=== PATIENT | male | born 1980 | race Caucasian/White ===

== ENCOUNTER 2016-08-31 12:42 | Emergency (ER) | payer BC ==
[~2016-08-31] VITALS: Wt 85.0 kg
[~2016-08-31 12:42] MED LIST: ACID1TAB14 PO; AMO500 PO; APIX5TAB PO; FERGON PO; GENT15CR TOP; HYDR-906 PO; LEVO750T25 PO; LYR75 PO
[2016-08-31] MEDS ORDERED: ONDANSETRON (ODT) 4 MG TAB ODT STA (13:37)
[2016-08-31] MEDS ORDERED: HYDROmorphONE 2 MG/ML SYG IM STA (13:59)
[2016-08-31] MEDS ORDERED: CEPHALEXIN 500 MG CAP PO ONE (14:00)
[2016-08-31] MEDS ORDERED: HYDROCODONE/APAP (10/325) TAB PO ONE (14:00)
[2016-08-31] MEDS ORDERED: TRIMETHOPRIM/SULFAMETHOX (DS) TAB PO ONE (14:00)
[2016-08-31] MEDS ORDERED: SSD1C20 TOP (14:14)
[2016-08-31] MEDS ORDERED: HYDR-902 PO (14:14)
[2016-08-31] MEDS ORDERED: IBUP-1542 PO (14:22)
[2016-08-31] MEDS ORDERED: SILVER SULFADIAZINE 1% 25 GM CR TOP ONE (15:00)
--- NOTE | 2016-08-31 16:03 | ERD ---
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 He has had leg ulcers for the past few years and was admitted in April for leg ulcer with infection. It was worse the last time he said as it was green. He said the pain is come back however over the past 2 weeks. He has no fevers. He has not called his primary doctor as of yet. The pain is 8 out of 10. Upon review of old medical records this is the patient's third visit to the ER since 2015 and April. He does have a primary doctor. ROS All systems reviewed and are negative except as per history of present illness. Medications Home Meds Active Scripts Silver Sulfadiazine (THERMAZENE 1% 25 GM) 1 Applic Cr, 1 APPLIC TOP DAILY, #1 TUB Prov:ASHLEY CLAYTON MD 08/31/16 Hydrocodone/Acetaminophen (Saline 10-325 Tablet) 1 Each Tablet, 1 TAB PO Q6H Y for PAIN, #7 TAB Prov:ASHLEY CLAYTON MD 08/31/16 Reported Medications Ibuprofen* (Ibuprofen*) 600 Mg Tablet, 600 MG PO Q6 Y for PAIN, TAB 08/31/16 Discontinued Scripts Hydrocodone/Acetaminophen (Saline 5-325 Tablet) 1 Each Tablet, 1 EACH PO Q4H Y for PAIN, #20 TAB Prov:MADHAV VELEZ 05/14/16 Amoxicillin* (Amoxicillin*) 500 Mg Cap, 500 MG PO BID, #20 CAP Prov:MADHAV VELEZ 05/14/16 Pregabalin* (Lyrica*) 75 Mg Capsule, 75 MG PO BID for 30 Days, CAP Prov:MADHAV VELEZ 05/14/16 Levofloxacin* (Levaquin*) 750 Mg Tablet, 750 MG PO DAILY@06 for 10 Days, TAB Prov:MADHAV VELEZ 05/14/16 Lactobacillus Acidoph/Bulgaricus* (Floranex*) 1 Each Tablet, 1 TAB PO TID for 30 Days, TAB Prov:MADHAV VELEZ 05/14/16 Gentamicin Sulfate* (Gentamicin Sulfate* Cream) 0.1% - 15 Gm Cr, 1 APPLIC TOP TID, #16 OZ Prov:MADHAV VELEZ 05/14/16 Ferrous Gluconate* (Fergon*) 325 Mg Tab, 325 MG PO BID for 30 Days, TAB Prov:MADHAV VELEZ 05/14/16 Apixaban* (Eliquis*) 5 Mg Tablet, 2.5 MG PO BID for 30 Days, TAB 1 Refill Prov:MADHAV VELEZ 05/14/16 Allergies Allergies: Coded Allergies: No Known Allergy (Unverified , 04/30/16) PMhx/Soc History of Surgery: Yes (BILAT LE DVT/CELLULITIS/ULCERS/SKIN GRAFT) Anesthesia Reaction: No Hx Neurological Disorder: No Hx Respiratory Disorders: No Hx Cardiac Disorders: No Hx Psychiatric Problems: No Hx Miscellaneous Medical Probl: Yes (BILAT LE DVT/CELLULITIS/ULCERS/SKIN GRAFT) Hx Alcohol Use: No (denies) Hx Substance Use: No Hx Tobacco Use: No (denies) Smoking Status: Never smoker FmHx Family History: No diabetes Physical Exam Vitals Vital Signs Date Time Temp Pulse Resp B/P Pulse Ox O2 Delivery O2 Flow Rate FiO2 08/31/16 12:54 99.0 115 18 159/120 99 Physical Exam Const: Moderate distress secondary to pain Head: Atraumatic Eyes: Normal Conjunctiva ENT: Normal External Ears, Nose and Mouth. Neck: Full range of motion..~ No meningismus. Resp: Clear to auscultation bilaterally Cardio: Regular rate and rhythm, no murmurs Abd: Soft, non tender, non distended. Normal bowel sounds Skin: Acute on chronic ulcers to the bilateral lower extremities without obvious redness, streaking, or abscess formation Back: No midline or flank tenderness Ext: No cyanosis, or edema Neur: Awake and alert Psych: Normal Mood and Affect Results 24 hrs Current Medications Medications (Trade) Dose Ordered Sig/Michi Route PRN Reason Start Time Stop Time Status Last Admin Dose Admin Acetaminophen/ Hydrocodone Bitart (Saline ()) 1 tab ONCE ONCE PO 08/31/16 14:00 08/31/16 14:01 DC 08/31/16 14:53 Ondansetron HCl (Zofran Odt) 4 mg ONCE STAT ODT 08/31/16 13:37 08/31/16 13:38 DC 08/31/16 14:13 Trimethoprim/ Sulfamethoxazole (Bactrim (Ds)) 1 tab ONCE ONCE PO 08/31/16 14:00 08/31/16 14:01 DC 08/31/16 14:13 Cephalexin (Keflex) 500 mg ONCE ONCE PO 08/31/16 14:00 08/31/16 14:01 DC 08/31/16 14:13 Hydromorphone HCl (Dilaudid) 2 mg ONCE STAT IM 08/31/16 13:59 08/31/16 14:00 DC 08/31/16 14:09 Silver Sulfadiazine (Thermazene 1% 25 Gm) 1 applic ONCE ONCE TOP 08/31/16 15:00 08/31/16 15:01 DC 08/31/16 15:32 Procedures/MDM Patient is a 36-year-old male with chronic ulcers who presents with bilateral lower extremity pain. He has open wounds which appear to be acute on chronic ulcers but at this point there is no obvious sign of infection. I did have the wound specialists come to the bedside to evaluate the patient and they said they are familiar with his legs from a previous admission in April and that it looks much better now than he did when he was admitted. They do not think there is infection and recommended Silvadene cream and daily dressings. The patient does have a daily wound care nurse who comes to his house to change dressings. I recommended follow-up with the amputation prevention center for further treatment. I do not think the patient requires admission to the hospital at this time. The patient can return for any worsening symptoms. Departure Diagnosis: Primary Impression: Ulcers of both lower extremities Additional Impression: Bilateral leg pain Condition: Fair Patient Instructions: Chronic Venous Insufficiency: Treating Ulcers, Skin Ulcer , Simple Referrals: [facility] Additional Instructions: SPECIALIST: YOU HAVE A MEDICAL CONDITION WHICH REQUIRES YOU TO SEE A SPECIALIST WITHIN THE NEXT 1-2 DAYS. PLEASE FOLLOW UP WITH YOUR PRIMARY PHYSICIAN FOR REFFERAL.IF YOU DO NOT HAVE A PRIMARY CARE PHYSICIAN AND/OR YOU CAN NOT AFFORD TO SEE A PHYSICIAN THE FOLLOWING RESOURCES HAVE BEEN SUPPLIED TO YOU. IT IS YOUR RESPONSIBILITY TO BE SEEN BY THE SPECIALIST ASHLEY CLAYTON MD Aug 31, 2016 16:03
== END 2016-08-31 15:52 | disposition home or self-care (01) ==
LOC: E/R 12:42
DX: L97.919 Non-pressure chronic ulcer of unspecified part of right lower leg with unspecified severity (principal); L97.929 Non-pressure chronic ulcer of unspecified part of left lower leg with unspecified severity; M79.605 Pain in left leg; M79.604 Pain in right leg; Z79.01 Long term (current) use of anticoagulants
CPT/HCPCS: 96372; 99284; J1170; Z7610

== ENCOUNTER 2016-11-12 10:15 | Emergency (ER) | payer BC ==
[~2016-11-12] VITALS: Ht 177.8 cm; Wt 102.3 kg
[~2016-11-12 10:15] MED LIST changes: -ACID1TAB14 PO; -AMO500 PO; -APIX5TAB PO; -FERGON PO; -GENT15CR TOP; +HYDR-902 PO; -HYDR-906 PO; +IBUP-1542 PO; -LEVO750T25 PO; -LYR75 PO; +SSD1C20 TOP
[2016-11-12 10:26] VITALS: Ht 177.8 cm; Wt 102.3 kg
[2016-11-12] MEDS ORDERED: ONDANSETRON 4 MG INJ IV STA (11:01)
[2016-11-12] MEDS ORDERED: HYDROmorphONE 2 MG/ML SYG IV STA (11:01)
[2016-11-12] MEDS ORDERED: PIPER-TAZO 3.375 GM IV (PMX) 100 ML IVPB STA (11:01)
[2016-11-12] MEDS ORDERED: SODIUM CHLORIDE 0.9% 1L BAG IV* STA (11:01)
[2016-11-12] MEDS ORDERED: VANCOMYCIN 1 GM (PMX) 250 ML IVPB ONE (11:30)
[2016-11-12 11:51] LABS: ADD SCAN DIFF NO
[2016-11-12 11:57] LABS: BASOPHIL # 0.1 10^3/ul (0.0-0.1); BASOPHILS % 0.8 % (0.0-2.0); EOSINOPHILS # 0.1 10^3/ul (0.0-0.5); EOSINOPHILS % 2.2 % (0.0-7.0); HEMOGLOBIN 11.1 g/dl (14.0-18.0); LYMPHOCYTES # 1.2 10^3/ul (0.8-2.9); LYMPHOCYTES % 18.8 % (15.0-51.0); MEAN CORPUSCULAR HEMOGLOBIN 26.3 pg (29.0-33.0); MEAN CORPUSCULAR HGB CONC 32.6 g/dl (32.0-37.0); MEAN CORPUSCULAR VOLUME 80.6 fl (82.0-101.0); MEAN PLATELET VOLUME 10.3 fl (7.4-10.4); MONOCYTE # 0.4 10^3/ul (0.3-0.9); MONOCYTES % 6.3 % (0.0-11.0); NEUTROPHIL # 4.6 10^3/ul (1.6-7.5); NEUTROPHILS % 71.4 % (39.0-77.0); PLATELET COUNT 109 10^3/UL (140-415); RED BLOOD COUNT 4.22 10^6/ul (4.70-6.10); RED CELL DISTRIBUTION WIDTH 15.5 % (11.5-14.5); WHITE BLOOD COUNT 6.4 10^3/ul (4.8-10.8)
[2016-11-12 12:13] LABS: CHLORIDE 101 mmol/L (97-110)
[2016-11-12 12:14] LABS: ALBUMIN 4.1 g/dl (3.3-4.9); POTASSIUM 4.3 mmol/L (3.5-5.1); SODIUM 138 mmol/L (135-144)
[2016-11-12 12:17] LABS: ALANINE AMINOTRANSFERASE 44 IU/L (13-69); ALKALINE PHOSPHATASE 101 IU/L (42-121); ANION GAP 16 (8-16); ASPARTATE AMINO TRANSFERASE 28 IU/L (15-46); BILIRUBIN,INDIRECT 0.2 mg/dl (0-1.1); BILIRUBIN,TOTAL 0.2 mg/dl (0.2-1.3); BLOOD UREA NITROGEN 16 mg/dl (7-20); CALCIUM 9.5 mg/dl (8.4-10.2); CARBON DIOXIDE 25 mmol/L (21-31); CREATININE 0.95 mg/dl (0.61-1.24); GLUCOSE 123 mg/dl (70-220); INR 1.01; PROTIME 13.3 Sec (12.2-14.2); TOTAL PROTEIN 7.8 g/dl (6.1-8.1)
--- NOTE | 2016-11-12 12:22 | RADRPT ---
PROCEDURE: XR Chest. CLINICAL INDICATION: Possible Sepsis TECHNIQUE: Single frontal view of the chest was obtained. COMPARISON: None. FINDINGS: There is mild cardiomegaly. The lungs are clear. There is no significant pleural effusion or pneumothorax. IMPRESSION: Mild cardiomegaly. No focal infiltrates or effusions. RPTAT: EE Physician Ramírez Date Time Electronically viewed and signed by Guicho Badillo Physician on 11/12/2016 12:22 RA/
--- NOTE | 2016-11-12 12:25 | RADRPT ---
PROCEDURE: XR Foot. CLINICAL INDICATION: Possible Sepsis TECHNIQUE: AP, lateral and oblique views of the right foot was obtained. The images were reviewed on a PACS workstation. COMPARISON: None. FINDINGS: There is no evidence of acute fracture, dislocation, or subluxation. The joint spaces are preserved. There is marked swelling of the first digit of the right foot with mildly decreased mineralization o f the first distal phalanx without definite cortical irregularity. Bone mineralization is otherwise normal. IMPRESSION: Soft tissue swelling of the first digit as well as mildly decreased osseous mineralization of the di stal phalanx without definite cortical irregularity. Findings are nonspecific and suggest celluliti s although underlying osteomyelitis cannot be entirely excluded. Clinical correlation is recommende d. RPTAT: EE Physician Ramírez Date Time Electronically viewed and signed by Physician Ramírez on 11/12/2016 12:25 RA/
[2016-11-12 12:29] LABS: TROPONIN-I < 0.012 ng/ml (0.00-0.12)
[2016-11-12] MEDS ORDERED: HYDROmorphONE 1 MG/ML SYG IV STA ×4 (13:22→19:27)
--- NOTE | 2016-11-12 14:33 | ERA ---
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 The patient says that his nailbed of the right toe is black. The patient said that 2-3 weeks ago it started and it has been painful and smelly. He has had a history of infections of the legs as well. He has been seen by provisioning specialist, vascular surgeons, and podiatry. He has had no recent antibiotics. He is in significant pain. ROS All systems reviewed and are negative except as per history of present illness. Medications Home Meds Active Scripts Silver Sulfadiazine (THERMAZENE 1% 25 GM) 1 Applic Cr, 1 APPLIC TOP DAILY, #1 TUB Prov:ASHLEY CLAYTON MD 08/31/16 Hydrocodone/Acetaminophen (Edwards 10-325 Tablet) 1 Each Tablet, 1 TAB PO Q6H Y for PAIN, #7 TAB Prov:ASHLEY CLAYTON MD 08/31/16 Reported Medications Ibuprofen* (Ibuprofen*) 600 Mg Tablet, 600 MG PO Q6 Y for PAIN, TAB 08/31/16 Allergies Allergies: Coded Allergies: morphine (Verified Allergy, Unknown, VOMITING, 11/12/16) tramadol (Verified Allergy, Unknown, 11/12/16) PMhx/Soc History of Surgery: Yes (BILAT LE DVT/CELLULITIS/ULCERS/SKIN GRAFT) Anesthesia Reaction: No Hx Neurological Disorder: No Hx Respiratory Disorders: No Hx Cardiac Disorders: No Hx Psychiatric Problems: No Hx Miscellaneous Medical Probl: Yes (BILAT LE DVT/CELLULITIS/ULCERS/SKIN GRAFT) Hx Alcohol Use: No (denies) Hx Substance Use: No Hx Tobacco Use: No (denies) Smoking Status: Never smoker FmHx Family History: No diabetes Physical Exam Vitals Vital Signs Date Time Temp Pulse Resp B/P Pulse Ox O2 Delivery O2 Flow Rate FiO2 11/12/16 10:26 99.7 105 19 119/94 97 Physical Exam Const: Moderate distress secondary to pain Head: Atraumatic Eyes: Normal Conjunctiva ENT: Normal External Ears, Nose and Mouth. Neck: Full range of motion..~ No meningismus. Resp: Clear to auscultation bilaterally Cardio: Regular rate and rhythm, no murmurs Abd: Soft, non tender, non distended. Normal bowel sounds Skin: Chronic wound changes to lower extremity with gangrene of the second right digit with wound discharge and foul smell Back: No midline or flank tenderness Ext: No cyanosis, or edema Neur: Awake and alert Psych: Normal Mood and Affect Result Diagram: 11/12/16 1140 11/12/16 1140 Results 24 hrs Laboratory Tests Test 11/12/16 11:40 11/12/16 13:00 White Blood Count 6.410^3/ul Red Blood Count 4.2210^6/ul Hemoglobin 11.1g/dl Hematocrit 34.0% Mean Corpuscular Volume 80.6fl Mean Corpuscular Hemoglobin 26.3pg Mean Corpuscular Hemoglobin Concent 32.6g/dl Red Cell Distribution Width 15.5% Platelet Count 24356^3/UL Mean Platelet Volume 10.3fl Neutrophils % 71.4% Lymphocytes % 18.8% Monocytes % 6.3% Eosinophils % 2.2% Basophils % 0.8% Nucleated Red Blood Cells % 0.0/100WBC Neutrophils # 4.610^3/ul Lymphocytes # 1.210^3/ul Monocytes # 0.410^3/ul Eosinophils # 0.110^3/ul Basophils # 0.110^3/ul Nucleated Red Blood Cells # 0.010^3/ul Prothrombin Time 13.3Sec Prothrombin Time Ratio 1.0 INR International Normalized Ratio 1.01 Activated Partial Thromboplast Time 65.0Sec Sodium Level 138mmol/L Potassium Level 4.3mmol/L Chloride Level 101mmol/L Carbon Dioxide Level 25mmol/L Anion Gap 16 Blood Urea Nitrogen 16mg/dl Creatinine 0.95mg/dl Glucose Level 123mg/dl Lactic Acid Level 1.2mmol/L 1.4mmol/L Calcium Level 9.5mg/dl Total Bilirubin 0.2mg/dl Direct Bilirubin 0.00mg/dl Indirect Bilirubin 0.2mg/dl Aspartate Amino Transf (AST/SGOT) 28IU/L Alanine Aminotransferase (ALT/SGPT) 44IU/L Alkaline Phosphatase 101IU/L Troponin I < 0.012ng/ml Total Protein 7.8g/dl Albumin 4.1g/dl Globulin 3.70g/dl Albumin/Globulin Ratio 1.10 Current Medications Medications (Trade) Dose Ordered Sig/Michi Route PRN Reason Start Time Stop Time Status Last Admin Dose Admin Sodium Chloride 3170 ml 3,170 ml BOLUS OVER 2 HOURS STAT IV* 11/12/16 11:01 11/12/16 11:03 DC 11/12/16 11:49 Vancomycin HCl 250 ml @ 125 mls/hr ONCE ONCE IVPB 11/12/16 11:30 11/12/16 13:29 DC 11/12/16 12:32 Piperacillin Sod/ Tazobactam Sod (Zosyn 3.375gm/ 100 ml (Pmx)) 100 ml @ 200 mls/hr ONCE STAT IVPB 11/12/16 11:01 11/12/16 11:30 DC 11/12/16 12:00 Hydromorphone HCl (Dilaudid) 2 mg ONCE STAT IV 11/12/16 11:01 11/12/16 11:03 DC 11/12/16 11:49 Ondansetron HCl (Zofran Inj) 4 mg ONCE STAT IV 11/12/16 11:01 11/12/16 11:03 DC 11/12/16 11:49 Hydromorphone HCl (Dilaudid) 1 mg ONCE STAT IV 11/12/16 13:22 11/12/16 13:23 DC 11/12/16 13:37 Procedures/MDM X-ray of the right foot shows cellulitis and possible osteomyelitis per radiology. Chest x-ray shows no pneumonia per radiology. EKG read by me: Rate/Rhythm: Regular rate and rhythm at a rate of 89 Intervals: Normal Impression: No evidence of ischemia or arrhythmia Patient is a 36-year-old male who presents with acute cellulitis of the right lower extremity with possible osteomyelitis. I also believe he has acute gangrene of the right second digit. The patient was given 30 mL/kg fluid bolus for fluid resuscitation and broad-spectrum antibiotics with vancomycin and Zosyn. The patient will need transfer based on his insurance and I spoke with Dr. Pruitt from [facility] who will accept the patient in transfer. The patient will be transferred by ambulance. The patient will likely need continued antibiotics. He has anemia with a hemoglobin of 11.1. At this point I doubt sepsis. Departure Diagnosis: Primary Impression: Cellulitis Qualified Code: L03.115 - Cellulitis of right lower extremity Additional Impression: Bilateral leg pain Condition: ASHLEY Dunham MD Nov 12, 2016 14:33
[2016-11-12 19:57] VITALS: BP 136/89; PULSE 95; RESP 20; TEMP 97.9
== END 2016-11-12 19:59 | disposition short-term general hospital (02) ==
LOC: FTE 10:15
DX: L03.115 Cellulitis of right lower limb (principal); M79.604 Pain in right leg
CPT/HCPCS: 71010; 73630; 80053; 83605; 84484; 85025; 85610; 85730; 87040; 93005; J1170; J2405; J2543; J3370; J7030; 36415; 96374; 96375; 96376